=== PATIENT | female | born 1985 | race Caucasian/White ===

== ENCOUNTER 2019-03-16 03:31 | Inpatient (IN) | payer OTHER ==
[~2019-03-16] VITALS: Ht 162.6 cm; Wt 86.2 kg
[~2019-03-16 03:31] MED LIST: PRENATAL ONE T1 EACH
[2019-03-16] MEDS ORDERED: RINGERS SOLUTION,LACTATED 1,000 ML IV ONE (04:01)
[2019-03-16] MEDS ORDERED: OXYTOCIN 30 UNITS/LACT RINGERS 500 ML IV ONE (04:01)
[2019-03-16] MEDS ORDERED: LIDOCAINE/PF 1% 30 ML VIAL INJ PRN (04:15)
[2019-03-16] MEDS ORDERED: METOCLOPRAMIDE HCL 5 MG/ML 2 ML VIAL IVP PRN (04:15)
[2019-03-16] MEDS ORDERED: CITRIC ACID/SODIUM CITRATE 30 ML SOLUTION UDCUP PO PRN (04:15)
[2019-03-16] MEDS ORDERED: FentaNYL CITRATE-PF 100 MCG/2 ML VIAL IVP PRN (04:15)
[2019-03-16 04:17] VITALS: BP 121/71
[2019-03-16 04:50] LABS: BASOPHILS % (AUTO) 0.4 % (0.0-2.0); HEMATOCRIT 34.8 % (36-46); HEMOGLOBIN 11.2 g/dL (12.0-16.0); LYMPHOCYTES # (AUTO) 2.1 K/uL (1.0-4.8); MEAN CORPUSCULAR HEMOGLOBIN 27.4 pg (26.0-34.0); MEAN CORPUSCULAR HGB CONC 32.1 G/dL (31.0-37.0); MEAN CORPUSCULAR VOLUME 85 fL (80-100); MONOCYTES # (AUTO) 0.9 K/uL (0.1-1.0); NEUTROPHILS # (AUTO) 6.4 K/uL (1.8-7.7); NEUTROPHILS % (AUTO) 67.6 % (40.0-70.0); PLATELET COUNT (AUTO)-OB 263 K/uL (150-450); RED BLOOD CELL COUNT(AUTO) 4.07 MIL/uL (4.00-5.20); RED CELL DISTRIBUTION WIDTH 15.6 % (11.5-14.5)
[2019-03-16] MEDS: RINGERS SOLUTION,LACTATED 1,000 ML IV SCH ×3 (05:14→19:39)
[2019-03-16] MEDS ORDERED: DINOPROSTONE 10 MG VAGINAL SUPPOSITORY VG ONE (08:00)
[2019-03-16] MEDS: AMPICILLIN SODIUM 2 GM/NS 100 ML IV SCH ×2 (15:40→21:44)
[2019-03-16] MEDS ORDERED: OXYTOCIN 30 UNITS/LACT RINGERS 500 ML IV PRN (16:05)
[2019-03-16] MEDS ORDERED: LIDOCAINE/PF 2% 5 ML VIAL ONE (16:21)
[2019-03-16] MEDS ORDERED: ROPIVACAINE HCL/PF 0.2% 100 ML ED ONE (16:21)
[2019-03-16] MEDS ORDERED: DiphenhydrAMINE HCL 50 MG/ML VIAL IVP PRN (17:15)
[2019-03-16] MEDS ORDERED: ROPIVACAINE HCL/PF 0.2% 100 ML ED PRN (17:15)
[2019-03-16] MEDS ORDERED: NALBUPHINE HCL 10 MG/ML VIAL IVP PRN (17:15)
[2019-03-16] MEDS ORDERED: ONDANSETRON HCL 4 MG/2 ML VIAL IVP PRN (17:15)
[2019-03-16] MEDS ORDERED: -PHARMACY NOTE- MISC ONE (20:00)
[2019-03-16] MEDS ORDERED: OXYTOCIN 20 UNITS/LACT RINGERS 1,000 ML IV ONE (22:24)
[2019-03-16] MEDS ORDERED: OXYTOCIN 20 UNITS/LACT RINGERS 1,000 ML IV SCH (22:24)
[2019-03-16] MEDS ORDERED: IBUPROFEN 600 MG TABLET PO PRN (22:30)
[2019-03-16] MEDS ORDERED: LANOLIN 7 GM OINTMENT TP PRN (22:30)
[2019-03-16] MEDS ORDERED: MEASLES/MUMPS/RUBELLA VACCINE, LIVE 0.5 ML/VIAL SQ ONE (22:30)
[2019-03-16] MEDS ORDERED: GLYCERIN/WITCH HAZEL LEAF 40 PADS JAR TP PRN (22:30)
[2019-03-16] MEDS ORDERED: BENZOCAINE 20%/MENTHOL 56 GM SPRAY CANISTER TP PRN (22:30)
[2019-03-16] MEDS: ACETAMINOPHEN/CODEINE 300-30 MG TABLET PO PRN (23:21)
[2019-03-17] MEDS: ACETAMINOPHEN/CODEINE 300-30 MG TABLET PO PRN (02:27)
[2019-03-17 06:47] LABS: BASOPHILS % (AUTO) 0.8 % (0.0-2.0); EOSINOPHILS % (AUTO) 0.1 % (1.0-6.0); HEMATOCRIT 29.2 % (36-46); HEMOGLOBIN 9.5 g/dL (12.0-16.0); MEAN CORPUSCULAR HEMOGLOBIN 27.6 pg (26.0-34.0); MEAN CORPUSCULAR HGB CONC 32.4 G/dL (31.0-37.0); MEAN CORPUSCULAR VOLUME 85 fL (80-100); MONOCYTES # (AUTO) 1.2 K/uL (0.1-1.0); MONOCYTES % (AUTO) 9.8 % (2.0-9.0); NEUTROPHILS % (AUTO) 73.3 % (40.0-70.0); PLATELET COUNT (AUTO)-OB 228 K/uL (150-450); RED BLOOD CELL COUNT(AUTO) 3.43 MIL/uL (4.00-5.20); RED CELL DISTRIBUTION WIDTH 15.3 % (11.5-14.5)
[2019-03-17] MEDS: SENNA/DOCUSATE SODIUM 8.6-50 MG TABLET PO PRN ×2 (10:00→21:13)
[2019-03-17] MEDS: MAGNESIUM HYDROXIDE SUSPENSION 30 ML UDCUP PO PRN ×2 (10:00→21:13)
[2019-03-18] MEDS ORDERED: IBUP-2071 PO (09:23)
[2019-03-18] MEDS ORDERED: DSS100 PO (09:24)
[2019-03-18] MEDS ORDERED: FERR-89 PO (09:24)
== END 2019-03-18 10:55 | disposition home or self-care (01) | DRG 807 ==
LOC: OBSVTOIN 03:31 → 4S 03:31
PROVIDERS: ADMIT Obstetrics & Gynecology; ATTEND Obstetrics & Gynecology
PROC: 10E0XZZ Delivery of Products of Conception, External Approach (ICD-10-PCS; principal; 2019-03-16)
PROC: 0KQM0ZZ Repair Perineum Muscle, Open Approach (ICD-10-PCS; 2019-03-16)
PROC: 3E0R3BZ Introduction of Anesthetic Agent into Spinal Canal, Percutaneous Approach (ICD-10-PCS; 2019-03-16)
PROC: 00HU33Z Insertion of Infusion Device into Spinal Canal, Percutaneous Approach (ICD-10-PCS; 2019-03-16)
DX: O70.1 Second degree perineal laceration during delivery (principal); Z37.0 Single live birth; Z3A.38 38 weeks gestation of pregnancy
CPT/HCPCS: 86850; 86900; 86901; J0290; J2590; J2795; J3490; J7120